=== PATIENT | female | born 1990 | race Two or more races ===

== ENCOUNTER 2018-12-29 03:47 | Inpatient (IN) | payer MEDICAID ==
[~2018-12-29] VITALS: Ht 152.4 cm; Wt 60.0 kg
--- NOTE | 2018-12-29 05:15 | NUR ---
REPORT RECEIVED FROM KRISTOFER ZAMORA AT [facility]. ETA [id number]
--- NOTE | 2018-12-29 06:15 | NUR ---
RECEIVED PATIENT VIA GURNEY IN STABLE CONDITION. PATIENT AWAKE, A/OX4 AND ABLE TO PROVIDE HISTORY. NO C/O PAIN OR DISCOMFORT. NO RESPIRATORY DISTRESS NOTED. PERIPHERAL LINE IN LAC #20 GAUGE INTACT AND PATENT. PATIENT AMBULATORY WITH STEADY GAIT. ENCOURAGED USE OF CALL LIGHT FOR ASSISTANCE AND VERBALIZED GOOD UNDERSTANDING. BED IN LOW LOCK SETTING. ROOM FREE OF CLUTTER AND BELONGINGS KEPT NEAR BEDSIDE. WILL CONTINUE TO MONITOR.
[2018-12-29] MEDS ORDERED: CETI-102 PO (06:42)
[2018-12-29] MEDS ORDERED: FLUT1DIS INH (06:42)
[2018-12-29] MEDS ORDERED: MONT10TA22 PO (06:42)
[2018-12-29] MEDS ORDERED: BUDE10.22 INH (06:42)
[2018-12-29] MEDS ORDERED: FLUT16SP16 NS (06:42)
[2018-12-29 06:43] VITALS: BP 108/69
[2018-12-29] MEDS ORDERED: ALBUTEROL FS 2.5 MG/3 ML VIAL.NEB NEB PRN (07:00)
[2018-12-29] MEDS ORDERED: MORPHINE SULFATE INJ 2 MG/ML DISP.SYRIN IV PRN (07:00)
[2018-12-29] MEDS ORDERED: ONDANSETRON HCL/PF 4 MG/2 ML VIAL IVP PRN (07:00)
[2018-12-29] MEDS ORDERED: ACETAMINOPHEN 325 MG TABLET PO PRN (07:00)
--- NOTE | 2018-12-29 07:23 | NUR ---
MS TEACHER RESOURCE OPENING NOTE PATIENT IN BED RESTING COMFORTABLY WITH AUNT AT THE BEDSIDE. PATIENT IS ALERT AND ORIENTED X4. PATIENT IN NO ACUTE DISTRESS. NO SOB NOTED. PATIENT BREATHING IS EVEN AND UNLABORED. PATIENT STATES CHEST IS SORE BUT IS TOLERABLE. PATIENT NEEDS AND CONCERNS ADDRESSED. PER COMPOUND FINISHER RN MD MITUL AWARE OF PATIENT ON UNIT AND ORDERS TO BE FOLLOWED. PATIENT BED IS LOCKED AND IN LOWEST POSITION. CALL LIGHT WITHIN REACH. WILL CONTINUE TO MONITOR.
--- NOTE | 2018-12-29 07:45 | NUR ---
MS RN NOTE PATIENT REFUSED TO HAVE SKIN ASSESSMENT WITH ME. PATIENT STATED " I ALREADY HAD MY SKIN ASSESSED BY THE BUSSER NURSE, MITUL." EXPLAINED TO PATIENT RISKS VS BENEFITS 3X. CLARIFIED AND SPOKEN WITH BUSSER NURSE MITUL, NO SKIN ISSUES OBSERVED PER MITUL RN. PATIENT STATES " MY SKIN IS GOOD, I HAVE NO SKIN ISSUES IM OKAY THANK YOU." PATIENT CONTINUED TO REFUSE SKIN ASSESSMENT.
[2018-12-29 08:00] VITALS: BP 108/69
[2018-12-29] MEDS: PANTOPRAZOLE 40 MG TABLET.DR PO SCH (08:30)
[2018-12-29] MEDS: FLUTICASONE/VILANTEROL 1 EACH BLST.W.DEV IH SCH (08:38)
[2018-12-29] MEDS: cetrizine 10 MG TABLET PO SCH (08:38)
[2018-12-29] MEDS: LEVOFLOXACIN 500 MG /D5W 100ML 500 MG in PREMIX 1 EA IV SCH (08:40)
--- NOTE | 2018-12-29 09:03 | NUR ---
MS RN NOTE PATIENT SEEN AND EVALUATED BY DR. BENSON. PATIENT IN NO ACUTE DISTRESS. PATIENT OKAY TO BE ON REGULAR DIET PER MD. NO OTHER NEW ORDERS AT THIS TIME. WILL CONTINUE TO MONITOR.
[2018-12-29 10:52] LABS: APPEARANCE,URINE CLEAR (CLEAR); BILIRUBIN,URINE NEGATIVE (NEGATIVE); BLOOD, URINE TRACE Ery/uL (NEGATIVE); COLOR,URINE YELLOW (YELLOW); KETONES,URINE NEGATIVE (NEGATIVE); LEUKOCYTE ESTERASE ,URINE NEGATIVE (NEGATIVE); NITRITE, URINE NEGATIVE (NEGATIVE); PROTEIN,URINE NEGATIVE (NEGATIVE); UGLUCOSE NEGATIVE (NEGATIVE); UROBILINOGEN,URINE 0.2 EU/dL (0.2)
[2018-12-29] MEDS: methylPREDNISolone SOD SUCC 40 MG/ML VIAL IV SCH ×3 (12:05→21:18)
--- NOTE | 2018-12-29 12:19 | NUR ---
MS RN NOTE PATIENT TO RECEIVE SOLU-MEDROL, VIAL WAS NOT MIXING WITH SOLUTION. EXCHANGED WITH PHARMACY ORESTES FOR NEW VIAL FOR ADMINISTRATION. OKAY TO ADMINISTER SOLU-MEDROL PER PHARMACY. ADMINISTERED SOLU-MEDROL.
[2018-12-29 12:45] LABS: BACTERIA,URINE Few /HPF (None Seen); RBC,URINE 0-2 /HPF (0-2); SQUAMOUS EPITHELIAL CELL,UR Few /HPF (None Seen)
--- NOTE | 2018-12-29 15:35 | NUR ---
RT NOTE PRN TX GIVEN WITH NO ADVERSE REACTIONS. BREATH SOUND ARE BILATERAL WHEEZES. PT. HAS MILD SOB YET TOLERABLE. PT. REQUESTED ADDITIONAL TX'S. RN AWARE TO SCHEDULE ROUTINE TX'S. WILL CONTINUE TO MONITOR. Addendum: 12/29/18 at 1711 by RUTH TREVINO RT Amended: Links added.
--- NOTE | 2018-12-29 15:55 | NUR ---
MS RN NOTE PATIENT RECEIVED BREATHING TREATMENT WITH RT. PATIENT COMPLAINS OF CHEST TIGHTNESS AFTER BREATHING TREATMENT BUT TOLERABLE. PATIENT IN NO ACUTE DISTRESS. INFORMED DR. BENSON, ORDERS TO CHANGE ALBUTEROL (NEB) TO ROUTINE SCHEDULE [facility] INSTEAD OF PRN. WILL FOLLOW UP WITH NEW ORDERS. Addendum: 12/29/18 at 1605 by KEILA GARZA RN PER PHARMACY TO CHECK WITH MD TO MAKE SURE FREQUENCY IS CORRECT. DR. BENSON MADE AWARE, PER MD FREQUENCY IS TO BE MAINTAIN AT [facility] FOR BREATHING TREATMENTS. PHARMACY MADE AWARE.
[2018-12-29 16:00] VITALS: BP 119/76
--- NOTE | 2018-12-29 18:19 | NUR ---
MS RN CLOSING NOTE PATIENT IN NO ACUTE DISTRESS. NO SOB NOTED. PATIENT BREATHING IS EVEN AND UNLABORED. PATIENT COUSIN AT THE BEDSIDE. PATIENT NEEDS AND CONCERNS ADDRESSED. PATIENT KEPT CLEAN, DRY, AND COMFORTABLE THROUGHOUT SHIFT. IV INTACT. PATIENT IN NO PAIN AT THIS TIME. PATIENT BED IS LOCKED AND IN LOWEST POSITION. CALL LIGHT WITHIN REACH. WILL ENDORSE CARE TO PM SHIFT FOR MATTHEW. Addendum: 12/29/18 at 1845 by KEILA GARAZ RN MS RN CLOSING NOTE PATIENT IN BED RESTING COMFORTABLY. PATIENT IN NO ACUTE DISTRESS. NO SOB NOTED. PATIENT BREATHING IS EVEN AND UNLABORED. PATIENT COUSIN AT THE BEDSIDE. PATIENT NEEDS AND CONCERNS ADDRESSED. PATIENT KEPT CLEAN, DRY, AND COMFORTABLE THROUGHOUT SHIFT. IV INTACT. PATIENT IN NO PAIN AT THIS TIME. PATIENT BED IS LOCKED AND IN LOWEST POSITION. CALL LIGHT WITHIN REACH. WILL ENDORSE CARE TO PM SHIFT FOR MATTHEW.
--- NOTE | 2018-12-29 19:20 | NUR ---
RN OPEN NOTES RECEIVED PATIENT AWAKE IN BED WITH FAMILY AT BEDSIDE. A/O X4. NO SIGNS OF DISTRESS OR DISCOMFORT. BREATHING EVEN AND UNLABORED. IV ACCESS IN LAC, PATENT AND INTACT, NO SIGNS OF REDNESS OR INFILTRATION. BED IN LOW LOCKED POSITION WITH SIDE RAILS X2. CALL LIGHT WITHIN REACH. WILL CONTINUE TO MONITOR.
[2018-12-29] MEDS: ALBUTEROL FS 2.5 MG/3 ML VIAL.NEB NEB SCH (20:08)
[2018-12-29 20:13] VITALS: BP 113/78
[2018-12-29] MEDS ORDERED: MONTELUKAST SODIUM (10MG) 10 MG TABLET PO SCH (22:00)
[2018-12-30] MEDS: ALBUTEROL FS 2.5 MG/3 ML VIAL.NEB NEB SCH ×4 (00:02→10:50)
[2018-12-30] MEDS: methylPREDNISolone SOD SUCC 40 MG/ML VIAL IV SCH ×2 (05:40→12:42)
[2018-12-30 06:42] LABS: BASOPHILS % (AUTO) 0.2 % (0.0-2.0); HEMATOCRIT 38 % (33-45); HEMOGLOBIN 12.7 g/dL (11.5-14.8); LYMPHOCYTES # (AUTO) 1.3 /CMM (0.8-4.8); LYMPHOCYTES % (AUTO) 9.2 % (20.0-44.0); MEAN CORPUSCULAR HGB CONC 33 g/dl (31.0-36.0); MEAN CORPUSCULAR VOLUME 94 fL (82-100); MONOCYTES # (AUTO) 0.4 /CMM (0.1-1.30); MONOCYTES % (AUTO) 2.6 % (2.0-12.0); NEUTROPHILS # (AUTO) 12.6 /CMM (1.8-8.9); PLATELET COUNT (AUTO) 297 /CMM (150-450); WHITE BLOOD COUNT (AUTO) 14.4 K/uL (4.3-11.0)
[2018-12-30 07:04] LABS: ALBUMIN 3.2 g/dL (3.4-5.0); BILIRUBIN,TOTAL 0.2 mg/dL (0.2-1.0); CALCIUM, SERUM 8.7 mg/dL (8.5-10.1); CREATININE 0.8 mg/dL (0.6-1.3); MAGNESIUM 2.1 mg/dL (1.8-2.4); PHOSPHORUS 4.2 mg/dL (2.5-4.9); TOTAL PROTEIN, SERUM 7.1 g/dL (6.4-8.2)
--- NOTE | 2018-12-30 07:28 | NUR ---
RN CLOSING NOTES PATIENT RESTING IN BED, EASILY AROUSABLE. A/O X4. NO SIGNS OF DISTRESS OR DISCOMFORT. BREATHING EVEN AND UNLABORED. IV ACCESS IN LAC, PATENT AND INTACT, NO SIGNS OF REDNESS OR INFILTRATION. ALL NEEDS MET. NO SIGNIFICANT CHANGES THROUGH THE NIGHT. BED IN LOW LOCKED POSITION WITH SIDE RAILS X2. CALL LIGHT WITHIN REACH. ENDORSED TO AM SHIFT FOR MATTHEW.
--- NOTE | 2018-12-30 07:46 | NUR ---
RN MS OPENING NOTES Patient received on room air, no sob noted, a/ x4. Patient denies pain or any discomfort at this time. LAC 20 saline lock. Patient comfortably lying down in bed right now and awake. Bed at the lowest setting, call light within reach, side rails up x2.
[2018-12-30 08:00] VITALS: BP 106/76
[2018-12-30] MEDS: cetrizine 10 MG TABLET PO SCH (09:04)
[2018-12-30] MEDS: LEVOFLOXACIN 500 MG /D5W 100ML 500 MG in PREMIX 1 EA IV SCH (09:04)
[2018-12-30] MEDS: FLUTICASONE/VILANTEROL 1 EACH BLST.W.DEV IH SCH (09:04)
[2018-12-30] MEDS: PANTOPRAZOLE 40 MG TABLET.DR PO SCH (09:06)
[2018-12-30] MEDS ORDERED: PRED20TA PO (15:01)
[2018-12-30] MEDS ORDERED: ALBUT2 NEB (15:01)
--- NOTE | 2018-12-30 16:07 | NUR ---
RN MS DISCHARGE NOTES Patient discharged with no sob noted, vital signs stable and denies pain at this time. Patient has all the necessary paperwork for discharge, signed. All her belongings in her possession during discharge. Nothing missing, and all IV lines removed. Patient picked up by family member.
== END 2018-12-30 16:00 | disposition home or self-care (01) | DRG 141 ==
LOC: MED 06:09
PROVIDERS: ADMIT Family Medicine; ATTEND Family Medicine
DX: J45.901 Unspecified asthma with (acute) exacerbation (principal); D72.829 Elevated white blood cell count, unspecified; Z83.3 Family history of diabetes mellitus
CPT/HCPCS: 36415; 80053-TC; 81000-TC; 83735-TC; 84100-TC; 84702-TC; 85025-TC; 87081-TC; 87086-TC; A4216; G0378; J1956; J2920; J7050